=== PATIENT | male | born 1985 | race Caucasian/White ===

== ENCOUNTER 2017-10-05 18:53 | Emergency (ER) | payer SELFPAY ==
--- NOTE | 2017-10-05 21:09 | NUR ---
CALLED FOR PT NO ANSWER LWBT
== END 2017-10-05 21:11 | disposition left against medical advice (07) ==
LOC: ER 18:55
DX: Z53.21 Procedure and treatment not carried out due to patient leaving prior to being seen by health care provider (principal)

== ENCOUNTER 2017-10-05 22:28 | Emergency (ER) | payer SELFPAY ==
[~2017-10-05] VITALS: Ht 180.3 cm; Wt 77.1 kg
--- NOTE | 2017-10-05 23:06 | NUR ---
PT AMBULATED TO AND FROM BATHROOM W/ STEADY GAIT. NO DISTRESS NOTED. DENIES DIZZINESS OR SOB.
--- NOTE | 2017-10-05 23:13 | NUR ---
CYNTHIA RASHID AT BEDSIDE FOR MSE.
[2017-10-05] MEDS ORDERED: HYDROCODONE/APAP 10-325 MG TABLET PO ONE (23:15)
[2017-10-05] MEDS ORDERED: HYDROCODONE/APAP 10-325 MG TABLET ONE (23:17)
--- NOTE | 2017-10-05 23:27 | NUR ---
PT TAKEN TO RADIOLOGY BY TECH VIA WHEELCHAIR. NO DISTRESS NOTED.
--- NOTE | 2017-10-05 23:41 | NUR ---
PT BACK IN ROOM FROM RADIOLOGY.
--- NOTE | 2017-10-06 00:27 | NUR ---
Patient discharged to home in stable conditon. Written and verbal after care instructions given. Patient verbalizes understanding of instructions. Pt ambulated from ER w/ steady gait. No distress noted. Pt took all personal belongings.
[2017-10-06 00:29] VITALS: BP 136/87
== END 2017-10-06 00:29 | disposition home or self-care (01) ==
LOC: ER 22:30
DX: R51 Headache (principal); Z59.0 Homelessness; Z88.8 Allergy status to other drugs, medicaments and biological substances
CPT/HCPCS: 70486

== ENCOUNTER 2017-10-06 15:57 | Emergency (ER) | payer SELFPAY ==
[~2017-10-06] VITALS: Ht 180.3 cm; Wt 77.1 kg
--- NOTE | 2017-10-06 17:07 | NUR ---
Patient discharged to home in stable conditon. Written and verbal after care instructions given. Patient verbalizes understanding of instructions.PT WALKS IN STEADY GAIT.
== END 2017-10-06 17:09 | disposition home or self-care (01) ==
LOC: ER 15:57
DX: G89.29 Other chronic pain (principal); R51 Headache; Z59.0 Homelessness; Z88.8 Allergy status to other drugs, medicaments and biological substances
CPT/HCPCS: 99282; A4663